=== PATIENT | female | born 1990 | race African-American/Black ===

== ENCOUNTER 2017-05-13 09:01 | Emergency (ER) | payer OTHER ==
[~2017-05-13] VITALS: Ht 154.9 cm; Wt 56.7 kg
--- NOTE | ~2017-05-13 | EKG ---
[address] [address] ELECTROCARDIOGRAM REPORT Name: ARAM MCKEON Room #: [facility]#: [id number] Admission: 05/13/17 Attend Phys: Discharge: 05/13/17 Date of : 89 Report #: [id number] THIS REPORT FOR: //name// [facility] ED Test Date: 2017-05-13 Test Time: 09:26:20 Pat Name: ARAM MCKEON Department: Room: Gender: F Garage Hand: : 1990 Requested By: Latyoa Groves Order Number: [id number] MD: Arias Dent Measurements Intervals [place] Rate: 77 P: 47 ME: 149 QRS: 44 QRSD: 82 T: 27 QT: 374 QTc: 424 Interpretive Statements Sinus rhythm Compared to ECG 03/15/2012 03:22:40 Sinus arrhythmia no longer present Electronically Signed On 05-16-2017 21:59:55 CDT by Arias Dent [email or web address] <ELECTRONICALLY SIGNED> By: Arias Dent MD 05/16/17 [id number] Arias Dent MD /DEMETRIUS
[~2017-05-13 09:01] MED LIST: ACETAMINOPHEN-1 EAC1 PO; ANAPROX DS550 MG PO; IBUPROFEN 800800 MG PO; NAPROSYN500 MG PO; NOHOMEMEDICATIONS; NORCO 5-325 TA1 EACH PO
[2017-05-13 09:50] LABS: ABSOLUTE NEUTROPHILS 2.4 thou/uL (1.4-8.2); BASOPHILS 0.1 % (0.0-2.0); EOSINOPHILS 4.3 % (0.0-3.0); HEMATOCRIT 41.6 % (37.0-47.0); HEMOGLOBIN 13.8 gm/dL (12.0-15.0); LYMPHOCYTES 39.3 % (24.0-44.0); MCH 27.6 pg (26.0-34.0); MCHC 33.3 g/dL (28.0-37.0); MCV 82.9 fL (80.0-100.0); MONOCYTES 7.4 % (1.0-8.0); PLATELET COUNT 221 thou/uL (150-400); POLYS 48.9 % (36.0-66.0); RBC 5.02 mil/uL (4.20-5.00); RDW 13.9 % (10.5-14.5); WBC 4.9 thou/uL (4.0-11.0)
[2017-05-13 10:00] LABS: ANION GAP 2 mmol/L (7-16); BUN 9 mg/dL (7-18); CALCIUM 9.7 mg/dL (8.5-10.1); CHLORIDE 107 mmol/L (98-107); CO2 31 mmol/L (21-32); CREATININE 0.7 mg/dL (0.6-1.0); GLUCOSE 80 mg/dL (74-106); POTASSIUM 4.3 mmol/L (3.5-5.1); SODIUM 140 mmol/L (136-145)
[2017-05-13 10:06] LABS: MANUAL DIFF NO
[2017-05-13 10:08] LABS: ALBUMIN 3.9 g/dL (3.4-5.0); ALKALINE PHOSPHATASE 72 U/L (46-116); SGOT 18 U/L (15-37); SGPT 17 U/L (30-65); TOTAL BILIRUBIN 0.2 mg/dL (<0.1-1.0); TOTAL PROTEIN 7.2 g/dL (6.4-8.2); TROPONIN-I < 0.04 ng/mL (<0.04-0.07)
[2017-05-13] MEDS ORDERED: IBUPROFEN 600600 M1 PO (10:56)
[2017-05-13 11:07] VITALS: BP 118/67
== END 2017-05-13 10:57 | disposition home or self-care (01) ==
LOC: ER 09:01
PROVIDERS: Physician Assistant
DX: R07.9 Chest pain, unspecified (principal); M25.512 Pain in left shoulder

== ENCOUNTER 2018-07-29 16:08 | Emergency (ER) | payer OTHER ==
[~2018-07-29] VITALS: Ht 154.9 cm; Wt 54.4 kg
[~2018-07-29 16:08] MED LIST changes: +IBUPROFEN 600600 M1 PO
[2018-07-29 17:36] LABS: URINE BILIRUBIN NEGATIVE (Negative); URINE BLOOD NEGATIVE (Negative); URINE CLARITY SL CLOUDY; URINE COLOR YELLOW; URINE GLUCOSE-RANDOM* NEGATIVE (Negative); URINE KETONES NEGATIVE (Negative); URINE LEUKOCYTES-REFLEX NEGATIVE (Negative); URINE NITRITE-REFLEX NEGATIVE (Negative); URINE PROTEIN (DIPSTICK) NEGATIVE (Negative); URINE SPECIFIC GRAVITY 1.015 (1.005-1.035); URINE UROBILINOGEN 0.2 E.U./dl (0.2-1.0)
[2018-07-29] MEDS ORDERED: FLAGYL500 MG PO (18:21)
[2018-07-29 18:38] VITALS: BP 121/74
== END 2018-07-29 18:39 | disposition home or self-care (01) ==
LOC: ER 16:08
PROVIDERS: Nurse Practitioner Family
DX: N76.0 Acute vaginitis (principal); B96.89 Other specified bacterial agents as the cause of diseases classified elsewhere

== ENCOUNTER 2018-11-25 15:44 | Emergency (ER) | payer OTHER ==
[~2018-11-25] VITALS: Ht 154.9 cm; Wt 56.7 kg
[~2018-11-25 15:44] MED LIST changes: +FLAGYL500 MG PO
[2018-11-25 15:50] VITALS: BP 125/76
[2018-11-25 15:55] LABS: URINE BILIRUBIN NEGATIVE (Negative); URINE BLOOD 3+ (Negative); URINE CLARITY CLOUDY; URINE COLOR YELLOW; URINE GLUCOSE-RANDOM* NEGATIVE (Negative); URINE KETONES NEGATIVE (Negative); URINE NITRITE-REFLEX NEGATIVE (Negative); URINE PROTEIN (DIPSTICK) TRACE (Negative); URINE SPECIFIC GRAVITY 1.025 (1.005-1.035); URINE UROBILINOGEN 0.2 E.U./dl (0.2-1.0)
[2018-11-25 15:58] LABS: URINE LEUKOCYTES-REFLEX 1+ (Negative)
[2018-11-25 16:02] LABS: CASTS None Seen /LPF (None Seen); CRYSTALS None Seen /LPF (None Seen); SQUAMOUS >10 Many /LPF (0-3)
[2018-11-25 16:03] LABS: URINE RBC 0-2 Rare /HPF (0-2); URINE WBC-REFLEX 6-15 Few /HPF (0-5)
== END 2018-11-25 18:15 | disposition left against medical advice (07) ==
LOC: ER 15:44
PROVIDERS: Physician Assistant
DX: N89.8 Other specified noninflammatory disorders of vagina (principal)